=== PATIENT | female | born 1985 | race Caucasian/White ===

== ENCOUNTER 2017-02-22 11:30 | Emergency (ER) | payer MEDICAID ==
[~2017-02-22] VITALS: Ht 170.2 cm; Wt 59.0 kg
[2017-02-22 11:34] VITALS: BP 138/80
== END 2017-02-22 13:51 | disposition left against medical advice (07) ==
LOC: ER 11:30
DX: R05 Cough (principal); Z53.29 Procedure and treatment not carried out because of patient's decision for other reasons